=== PATIENT | male | born 1975 | race Caucasian/White ===

== ENCOUNTER 2021-04-21 08:22 | Emergency (ER) | payer BC ==
--- OUTSIDE RECORDS SUMMARY | 2021-04-21 08:25 | XMS REPORT | Continuity of Care Document ---
:1975 Author Organization [facility] t Address [address] [place] [place] [address] Care Team Providers Name Role Phone Lab, Hung Pob I Attending Clinician Unavailable Problems This patient has no known problems. Allergies, Adverse Reactions, Alerts This patient has no known allergies or adverse reactions. Medications This patient has no known medications. Procedures This patient has no known procedures. Encounters Start End Encounter Admission Attending Care Care Encounter Source Date/Time Date/Time Type Type Clinicians Facility Department ID 2020-03-07 2020-03-07 Laboratory Lab, [facility] [id number] 14:53:00 15:13:00 Only Fam Pob I [facility] [id number] [place] [id number] Jaswinder [phone] [address] Results This patient has no known results.
--- NOTE | 2021-04-21 08:58 | RAD REPORT ---
EXAM DESCRIPTION: CT - Stone Protocol - 04/21/2021 8:45 am CLINICAL HISTORY: Abdominal pain. ABD PAIN COMPARISON: Hepatobiliary System W/ Ph dated 11/04/2020; Abdomen Exam Limited dated 06/16/2020 TECHNIQUE: CT imaging of the abdomen and pelvis was performed without contrast. Solid organ, bowel a nd vascular assessment is limited due to lack of IV and oral contrast. All CT scans are performed using dose optimization technique as appropriate and may include automated exposure control or mA/KV adjustment according to patient size. FINDINGS: Patchy nodular and ground-glass opacities in the lower lungs. Small hiatal hernia. No suspicious liver lesions are identified. The spleen is enlarged measuring 16.5 centimeters in long axis. Bilateral nephrolithiasis. The renal calculi measure under 6 millimeters. . Mild left-sided hy dronephrosis secondary to a 5 millimeter stone in the left proximal ureter. The bladder is unremarkab le. No retroperitoneal lymphadenopathy. No bowel obstruction is identified. Normal appendix. The osseous structures are within normal limits. IMPRESSION: Mild left-sided hydronephrosis secondary to a 5 millimeters stone in the left proximal u reter. Irregular nodular ground-glass opacities in the lower lungs may reflect sequela of pneumonia, includi ng Covid-19. Recommend clinical correlation. If no recent pneumonia, suggest dedicated CT of the ches t for further evaluation. Splenomegaly of uncertain significance. A limited non-contrast examination was performed as detailed.
[2021-04-21 09:45] LABS: Absolute Lymphocytes (CBC) 1.1 K/uL (0.7-4.9); Basophils % 0.8 % (0-1.3); Hematocrit 38.4 % (39.6-49.0); Lymphocytes % 15.1 % (15.3-44.8); MPV 6.5 fL (7.6-11.3)
[2021-04-21 10:01] LABS: ALT/SGPT 47 U/L (12-78); AST/SGOT 22 U/L (15-37); Albumin 3.4 g/dL (3.4-5.0); Alkaline Phosphatase 165 U/L (45-117); BUN Blood Urea Nitrogen 13 mg/dL (7-18); Bicarbonate 24 mmol/L (21-32); Bilirubin Direct 0.3 mg/dL (0-0.2); Bilirubin Total 1.2 mg/dL (0.2-1.0); Glucose Level 188 mg/dL (74-106); Lipase 282 U/L (73-393); Potassium 3.3 mmol/L (3.5-5.1); Protein, Total 7.3 g/dL (6.4-8.2); Sodium Level 142 mmol/L (136-145)
[2021-04-21] MEDS ORDERED: HYDROMORPHONE HCL 1 MG/ML INJ ONE (10:31)
[2021-04-21] MEDS ORDERED: NA CHLORIDE 0.9% 1,000 ML ONE (10:31)
[2021-04-21] MEDS ORDERED: ONDANSETRON 4 MG/2 ML VIAL ONE (10:31)
[2021-04-21 10:33] LABS: Urine Blood 2+ (Negative); Urine Glucose Trace (Negative); Urine Protein Negative (Negative); Urine Specific Gravity 1.015 (1.005-1.030)
--- NOTE | 2021-04-21 10:41 | ER ---
Nurse's Notes [facility] Name: Michele Reilly Age: 46 yrs Sex: Male : 1975 Arrival Date: 04/21/2021 Time: 08: Bed 24 Private MD: Diagnosis: Calculus of ureter-left side Presentation: 04/21 08:26 Chief complaint: EMS states: back pain started last night, radiates to LUQ , EMS gave iw toradol and seemed to help, has been having abd issues that he's waiting on a diagnosis for, no fever, no vomiting. Coronavirus screen: Client presents with at least one sign or symptom that may indicate coronavirus-19. Ebola Screen: Patient negative for fever greater than or equal to 101.5 degrees Fahrenheit, and additional compatible Ebola Virus Disease symptoms Patient denies exposure to infectious person. Patient denies travel to an Ebola-affected area in the 21 days before illness onset. No symptoms or risks identified at this time. Initial Sepsis Screen: Does the patient meet any 2 criteria? No. Patient's initial sepsis screen is negative. Does the patient have a suspected source of infection? No. Patient's initial sepsis screen is negative. Risk Assessment: Do you want to hurt yourself or someone else? Patient reports no desire to harm self or others. Onset of symptoms was April 20, 2021. 08:26 Method Of Arrival: EMS: [facility] iw 08:26 Acuity: HENRY 3 iw Historical: - Allergies: 08:28 Augmentin; iw 08:28 Iodine; iw - Home Meds: 08:28 Gemfibrozil Oral [Active]; victoza [Active]; Paxil Oral [Active]; iw - PMHx: 08:28 Bronchitis; Diabetes mellitus; iw - Immunization history:: Client reports having NOT received the Covid vaccine. - Social history:: Smoking status: Patient denies any tobacco usage or history of. - Family history:: not pertinent. Screenin:21 Abuse screen: Denies threats or abuse. Nutritional screening: No deficits noted. vg1 Tuberculosis screening: No symptoms or risk factors identified. Fall Risk No fall in past 12 months (0 pts). No secondary diagnosis (0 pts). IV access (20 points). Ambulatory Aid- None/Bed Rest/Nurse Assist (0 pts). Gait- Normal/Bed Rest/Wheelchair (0 pts) Mental Status- Oriented to own ability (0 pts). Total Quintana Fall Scale indicates No Risk (0-24 pts). Assessment: 10:04 General: Appears in no apparent distress. uncomfortable, Behavior is calm, cooperative. vg1 Pain: Complains of pain in posterior aspect of left lateral abdomen and left upper quadrant Pain radiates to left low back and left mid back Pain currently is 8 out of 10 on a pain scale. Quality of pain is described as sharp, shooting, Pain began 1 day ago. Aggravated by repositioning. Neuro: Level of Consciousness is awake, alert, obeys commands, Oriented to person, place, time, situation. Cardiovascular: Patient's skin is warm and dry. Respiratory: Airway is patent Respiratory effort is even, unlabored. GI: Reports nausea, Patient currently denies diarrhea, vomiting. : Reports dark colored urine Denies burning with urination, urinary frequency. EENT: No signs and/or symptoms were reported regarding the EENT system. Derm: Skin is intact, is healthy with good turgor. Musculoskeletal: Circulation, motion, and sensation intact. Vital Signs: 08:36 BP 98 / 61; Pulse 82; Resp 16; Temp 98.0; Pulse Ox 97% on R/A; Weight 83.91 kg; Height iw 5 ft. 11 in. (180.34 cm); Pain 4/10; 09:24 BP 97 / 61; Pulse 70; iw 10:15 BP 106 / 62; Pulse 84; Resp 16; Pulse Ox 100% ; vg1 08:36 Body Mass Index 25.80 (83.91 kg, 180.34 cm) iw ED Course: 08:26 Patient arrived in ED. iw 08:27 Hussein Hansen MD is Attending Physician. ma2 08:27 Triage completed. iw 08:29 Arm band placed on. iw 08:30 Maintain EMS IV. Dressing intact. Good blood return noted. Site clean \T\ dry. Gauge \T\ iw site: 20 left hand . 08:44 CT Stone Protocol In Process Unspecified. EDMS 09:30 Renée Bowden, RN is Primary Nurse. iw 09:59 Chyna Ramos, RN is Primary Nurse. vg1 10:22 Patient has correct armband on for positive identification. Bed in low position. Call vg1 light in reach. Side rails up X 1. 10:22 No provider procedures requiring assistance completed. vg1 10:40 Vinnie Griffin MD is Referral Physician. ma2 11:41 IV discontinued, intact, bleeding controlled, No redness/swelling at site. Pressure vg1 dressing applied. Administered Medications: 10:14 Drug: NS 0.9% 1000 ml Route: IV; Rate: 1000 ml; Site: left hand; vg1 11:40 Follow up: IV Status: Completed infusion; IV Intake: 1000ml vg1 10:15 Drug: Zofran (Ondansetron) 4 mg Route: IVP; Site: left hand; vg1 11:41 Follow up: Response: No adverse reaction; Marked relief of symptoms vg1 10:17 Drug: Dilaudid (HYDROmorphone) 1 mg Route: IVP; Site: left hand; vg1 11:40 Follow up: Response: No adverse reaction; Pain is decreased vg1 Intake: 11:40 IV: 1000ml; Total: 1000ml. vg1 Outcome: 10:40 Discharge ordered by . ma2 11:41 Discharged to home ambulatory. vg1 11:41 Condition: stable 11:41 Discharge instructions given to patient, Instructed on discharge instructions, follow up and referral plans. medication usage, Demonstrated understanding of instructions, follow-up care, medications, Prescriptions given X 3. 11:41 Patient left the ED. vg1 Signatures: Dispatcher [employer] Renée López, RN JAMA iw Hussein Hansen MD MD ma2 Garcia, Victoria, RN RN vg1
--- NOTE | 2021-04-21 10:41 | EDPHYS ---
Physician Documentation [facility] Name: Michele Reilly Age: 46 yrs Sex: Male : 1975 Arrival Date: 04/21/2021 Time: 08: Bed 24 Private MD: ED Physician Hussein Hansen HPI: 04/21 09:27 This 46 yrs old Male presents to ER via EMS with complaints of Back Pain. ma2 09:27 This 46 yrs old Male presents to ER via EMS with complaints of left flank ma2 pain Pain. 09:27 The symptoms are located in the Left flank. Onset: The symptoms/episode began/occurred ma2 gradually, 1 day(s) ago. The pain does not radiate. Associated signs and symptoms: Pertinent negatives: constipation, headache, numbness, tingling. Severity of symptoms: At their worst the symptoms were moderate, in the emergency department the symptoms are unchanged. The patient has not experienced similar symptoms in the past. Historical: - Allergies: 08:28 Augmentin; iw 08:28 Iodine; iw - Home Meds: 08:28 Gemfibrozil Oral [Active]; victoza [Active]; Paxil Oral [Active]; iw - PMHx: 08:28 Bronchitis; Diabetes mellitus; iw - Immunization history:: Client reports having NOT received the Covid vaccine. - Social history:: Smoking status: Patient denies any tobacco usage or history of. - Family history:: not pertinent. ROS: 09:27 Constitutional: Negative for fever, chills, and weight loss. ma2 09:27 All other systems are negative. Exam: 09:27 Constitutional: This is a well developed, well nourished patient who is awake, alert, ma2 and in no acute distress. ENT: Nares patent. No nasal discharge, no septal abnormalities noted. Tympanic membranes are normal and external auditory canals are clear. Oropharynx with no redness, swelling, or masses, exudates, or evidence of obstruction, uvula midline. Mucous membranes moist. Neck: Trachea midline, no thyromegaly or masses palpated, and no cervical lymphadenopathy. Supple, full range of motion without nuchal rigidity, or vertebral point tenderness. No Meningismus. Chest/axilla: Normal chest wall appearance and motion. Nontender with no deformity. No lesions are appreciated. Cardiovascular: Regular rate and rhythm with a normal S1 and S2. No gallops, murmurs, or rubs. Normal PMI, no JVD. No pulse deficits. Respiratory: Lungs have equal breath sounds bilaterally, clear to auscultation and percussion. No rales, rhonchi or wheezes noted. No increased work of breathing, no retractions or nasal flaring. Abdomen/GI: Soft, non-tender, with normal bowel sounds. No distension or tympany. No guarding or rebound. No evidence of tenderness throughout. Back: No spinal tenderness. No costovertebral tenderness. Full range of motion. Skin: Warm, dry with normal turgor. Normal color with no rashes, no lesions, and no evidence of cellulitis. MS/ Extremity: Pulses equal, no cyanosis. Neurovascular intact. Full, normal range of motion. Neuro: Awake and alert, GCS 15, oriented to person, place, time, and situation. Cranial nerves II-XII grossly intact. Motor strength 5/5 in all extremities. Sensory grossly intact. Cerebellar exam normal. Normal gait. Vital Signs: 08:36 BP 98 / 61; Pulse 82; Resp 16; Temp 98.0; Pulse Ox 97% on R/A; Weight 83.91 kg; Height iw 5 ft. 11 in. (180.34 cm); Pain 4/10; 09:24 BP 97 / 61; Pulse 70; iw 10:15 BP 106 / 62; Pulse 84; Resp 16; Pulse Ox 100% ; vg1 08:36 Body Mass Index 25.80 (83.91 kg, 180.34 cm) iw MDM: 08:27 Patient medically screened. or2 09:27 Differential diagnosis: Fracture Hydronephrosis sprain, vertebral fracture. Data ma2 reviewed: vital signs, nurses notes. Counseling: I had a detailed discussion with the patient and/or guardian regarding: the historical points, exam findings, and any diagnostic results supporting the discharge/admit diagnosis, the presence of at least one elevated blood pressure reading (>120/80) during this emergency department visit, the need for outpatient follow up. Response to treatment: the patient's symptoms have markedly improved after treatment. 04/21 08:28 Order name: Basic Metabolic Panel; Complete Time: 10:39 ma2 04/21 08:28 Order name: CBC with Diff; Complete Time: 10:39 ma2 04/21 08:28 Order name: Hepatic Function; Complete Time: 10:39 ma2 04/21 08:28 Order name: Lipase; Complete Time: 10:39 or2 04/21 10:32 Order name: Urine Dipstick-Ancillary; Complete Time: 10:39 EDMS 04/21 08:28 Order name: CT Stone Protocol; Complete Time: 09:11 or2 04/21 08:28 Order name: IV Saline Lock; Complete Time: 09:24 ma2 04/21 08:28 Order name: NPO; Complete Time: 10:02 ma2 04/21 08:28 Order name: Urine Dipstick-Ancillary (obtain specimen); Complete Time: 10:33 ma2 Administered Medications: 10:14 Drug: NS 0.9% 1000 ml Route: IV; Rate: 1000 ml; Site: left hand; vg1 11:40 Follow up: IV Status: Completed infusion; IV Intake: 1000ml vg1 10:15 Drug: Zofran (Ondansetron) 4 mg Route: IVP; Site: left hand; vg1 11:41 Follow up: Response: No adverse reaction; Marked relief of symptoms vg1 10:17 Drug: Dilaudid (HYDROmorphone) 1 mg Route: IVP; Site: left hand; vg1 11:40 Follow up: Response: No adverse reaction; Pain is decreased vg1 Disposition Summary: 04/21/21 10:40 Discharge Ordered Location: Home ma2 Condition: Stable ma2 Diagnosis - Calculus of ureter - left side ma2 Followup: ma2 - With: - When: Tomorrow - Reason: If symptoms return Discharge Instructions: - Discharge Summary Sheet ma2 - Renal Colic, [id number] ma2 - Kidney Stones, [id number] ma2 - Dietary Guidelines to Help Prevent Kidney Stones ma2 Forms: - Medication Reconciliation Form ma2 - Thank You Letter ma2 - Antibiotic Education ma2 - Prescription Opioid Use ma2 Prescriptions: - Flomax 0.4 mg Oral capsule - take 1 capsule by ORAL route once daily 1/2 hour following the same meal each ma2 day; 60 capsule; Refills: 0, Product Selection Permitted - Zofran 4 mg Oral Tablet - take 1 tablet by ORAL route every 12 hours As needed; 20 tablet; Refills: 0, ma2 Product Selection Permitted - Diclofenac Sodium 75 mg Oral Tablet Sustained Release - take 1 tablet by ORAL route 2 times per day; 30 tablet; Refills: 0, Product ma2 Selection Permitted Signatures: Dispatcher [employer] Renée López, RN RN iw Hussein Hansen MD MD ma2 Chyna Ramos RN RN vg1
[2021-04-21 11:48] VITALS: TEMP 98
[2021-04-21 11:50] VITALS: BP 106/62; O2SAT 100
== END 2021-04-21 11:41 | disposition home or self-care (01) ==
LOC: ER 08:22
DX: N20.1 Calculus of ureter (principal); E11.9 Type 2 diabetes mellitus without complications; Z88.1 Allergy status to other antibiotic agents; Z91.048 Other nonmedicinal substance allergy status
CPT/HCPCS: 96361; 85025; 80048; 36415; 80076; 81003; 83690; 76377; 74176; 96375; 96374; 99284; J1170; J7030; J2405

== ENCOUNTER 2023-01-14 10:14 | Emergency (ER) | payer BC ==
--- OUTSIDE RECORDS SUMMARY | 2023-01-14 10:18 | XMS REPORT | Continuity of Care Document ---
:1975 Author Organization [facility] t Address [address] [facility] [address] [place] [address] Care Team Providers Name Role Phone Lab, [facility] Fam Pob I Attending Clinician Unavailable Herminio Beatty Attending Clinician HERMINIO FROST Attending Clinician Unavailable Payers Payer Name Policy Type Policy Number Effective Date Expiration Date S ource Problems This patient has no known problems. Allergies, Adverse Reactions, Alerts Allergy Allergy Status Severity Reaction(s) Onset Inactive Treating Comm ents Source Name Type Date Date Clinician NO KNOWN Drug Active [facility] Class ity of [facility] Social History Social Habit Start Date Stop Date Quantity Comments Source Sex Assigned At Uni versity [facility] Smoking Status Start Date Stop Date Source Unknown if ever smoked [facility] Medications This patient has no known medications. Procedures This patient has no known procedures. Encounters Start End Encounter Admission Attending Care Care Encounter Source Date/Time Date/Time Type Type Clinicians Facility Department ID 2020-03-07 2020-03-07 Laboratory Lab, [facility] [id number] 14:53:00 15:13:00 Only Fam Pob I Health [id number] [place] [id number] [facility] [id number] [address] 2020-03-07 2020-03-07 Laboratory Lab, [facility] Fam Pob I [facility] [id number] [facility] 14:53:00 15:13:00 Only Herminio [facility] [id number] [facility] [place] [id number] Nick as Professio [phone] [place] [address] [address] 2020-03-07 2020-03-07 Outpatient R [facility] [id number] [address] [facility] 14:40:00 14:40:00 HERMINIO pimentel [facility] Results This patient has no known results.
--- NOTE | 2023-01-14 11:17 | RAD REPORT ---
EXAM DESCRIPTION: LEONARDOChest Single View01/14/2023 11:06 am CLINICAL HISTORY: SOB COMPARISON: Chest Pa And Lat (2 Views) dated 08/29/2022; Abdomen 1 View (KUB) dated 05/22/2021 TECHNIQUE: Portable AP view of the chest. FINDINGS: Decreased inspiratory effort somewhat limits evaluation. The lungs are clear. No pneumotho rax or effusion. The cardiomediastinal contours are unremarkable. IMPRESSION: No acute cardiopulmonary process.
[2023-01-14 11:18] LABS: ALT/SGPT 45 U/L (16-61); AST/SGOT 25 U/L (15-37); Albumin 4.1 g/dL (3.4-5.0); Alkaline Phosphatase 93 U/L (45-117); BUN Blood Urea Nitrogen 16 mg/dL (7-18); Bicarbonate 23 mEq/L (21-32); Bilirubin Direct 0.4 mg/dL (0-0.2); Bilirubin Indirect, Calculated 2.1 mg/dL (0.2-0.8); Bilirubin Total 2.5 mg/dL (0.2-1.0); Glomerular Filtration Rate 107 ml/min (=/>90); Glucose Level 194 mg/dL (74-106); Magnesium 1.8 mg/dL (1.6-2.4); NT PRO-BNP 19 pg/mL (<125); Potassium 3.7 mEq/L (3.5-5.1); Protein, Total 7.9 g/dL (6.4-8.2); Sodium Level 136 mEq/L (136-145)
[2023-01-14 11:19] LABS: Absolute Lymphocytes (CBC) 0.9 K/uL (0.7-4.9); Hematocrit 49.3 % (39.6-49.0); Lymphocytes % 7.4 % (15.3-44.8); MCV 88.7 fL (80-100); MPV 7.4 fL (7.6-11.3); RBC Red Blood Cell Count 5.56 M/uL (4.33-5.43)
[2023-01-14 11:28] LABS: Troponin High Sensitivity < 3.0 pg/mL (<58.9)
[2023-01-14 11:28] LABS: SARS-CoV-2 Antigen Rapid Res Negative (Negative)
[2023-01-14 11:39] LABS: Protime INR 0.85
--- NOTE | 2023-01-14 12:07 | RAD REPORT ---
EXAM DESCRIPTION: CT - Chest For Pe Angio - 01/14/2023 11:41 am CLINICAL HISTORY: SOB COMPARISON: Chest Single View dated 01/14/2023 TECHNIQUE: Thin axial CT images of the chest were obtained following administration of 100 mL Isovu e 370 IV contrast. Multiplanar reconstructions, and maximum intensity projection reconstructions were generated and reviewed. Exam utilizes a protocol for optimal evaluation of pulmonary arterial tree. All CT scans are performed using dose optimization technique as appropriate and may include automated exposure control or mA/KV adjustment according to patient size. FINDINGS: Pulmonary arteries are normal. No emboli or other suspicious finding. No acute or signific ant aorta findings. No mass or infiltrate in the lung parenchyma. Right basilar subsegmental atelectasis. No pleural thic kening or pleural effusion. No pneumothorax. Prominent mediastinal and hilar lymph nodes. The largest mediastinal node is pretracheal, measuring 2 centimeter in short axis. Hilar lymph nodes are slightly more prominent on the right, with the large st node superiorly measuring 1.8 centimeter in short axis. No chest wall mass or abnormal axilliary l ymphadenopathy. IMPRESSION: No evidence of acute central pulmonary emboli. Moderately pronounced mediastinal and bilateral hilar adenopathy. These could be reactive or inflamma tory, although possibility of neoplasm such as lymphoma cannot be entirely excluded.
[2023-01-14] MEDS ORDERED: HYDROMORPHONE HCL 1 MG/ML INJ ONE (12:55)
[2023-01-14] MEDS ORDERED: ONDANSETRON 4 MG/2 ML VIAL ONE (12:55)
--- NOTE | 2023-01-14 13:22 | RAD REPORT ---
EXAM DESCRIPTION: CTAbdomen Pelvis W Contrast - 01/14/2023 1:12 pm CLINICAL HISTORY: Abdominal pain. elevated Tbili and abn CT chest COMPARISON: Chest For Pe Angio dated 01/14/2023 TECHNIQUE: Biphasic CT imaging of the abdomen and pelvis was performed with 100 ml non-ionic IV cont rast. All CT scans are performed using dose optimization technique as appropriate and may include automated exposure control or mA/KV adjustment according to patient size. FINDINGS: Mild linear atelectasis in both lung bases. The liver is mildly enlarged. Mild fatty liver. No intra or extrahepatic biliary tree dilatation. Mod erate splenomegaly. The spleen, adrenal glands and kidneys are within normal limits. No bowel obstruction, free air, free fluid or abscess. The appendix is normal. No evidence of signi ficant lymphadenopathy. No suspicious bony findings. IMPRESSION: Mild hepatosplenomegaly is noted, otherwise negative study.
[2023-01-14] MEDS ORDERED: NA CHLORIDE 0.9% 1,000 ML ONE ×2 (13:37→14:34)
--- NOTE | 2023-01-14 14:27 | EDPHYS ---
Physician Documentation [facility] Name: Michele Reilly Age: 47 yrs Sex: Male : 1975 Arrival Date: 01/14/2023 Time: 10:14 Bed 6 Private MD: Tien Moreno E ED Physician Darek Nguyen HPI: 01/14 10:49 This 47 yrs old Male presents to ER via Unassigned with complaints of Shortness Of sp3 Breath. 10:49 This 47 yrs old Male presents to ER via Unassigned with complaints of Shortness Of sp3 Breath. 10:49 47-year-old male with a history of diabetes presents to the ED with chief complaint sp3 shortness of breath. From his PCP. He went to his doctor and was found to be tachycardic along with a pulse oxygenation level of 91 to 92% as reported by patient. She denies chest pain, back pain, headache, neck pain, travel history, prolonged immobilization, prior DVT or pulmonary embolism, prior pneumonia, fever, abdominal pain, nausea, vomiting, diarrhea, rash, neurological symptoms, any other signs or symptoms on ROS at this time. Patient does endorse mild cough and congestion.. Historical: - Allergies: 10:55 Augmentin; jl7 10:55 Iodine; topical; jl7 - Home Meds: 10:55 Lantus Sub-Q [Active]; jl7 - PMHx: 10:55 Bronchitis; diabetes mellitus; jl7 - Immunization history:: Client reports having NOT received the Covid vaccine. - Social history:: Smoking status: Patient denies any tobacco usage or history of. ROS: 10:51 Constitutional: Negative for fever, chills, and weight loss, Eyes: Negative for injury, sp3 pain, redness, and discharge, ENT: Negative for injury, pain, and discharge, Neck: Negative for injury, pain, and swelling, Abdomen/GI: Negative for abdominal pain, nausea, vomiting, diarrhea, and constipation, Back: Negative for injury and pain, MS/Extremity: Negative for injury and deformity, Skin: Negative for injury, rash, and discoloration, Neuro: Negative for headache, weakness, numbness, tingling, and seizure, Psych: Negative for depression, anxiety, suicide ideation, homicidal ideation, and hallucinations, Allergy/Immunology: Negative for hives, rash, and allergies, Endocrine: Negative for neck swelling, polydipsia, polyuria, polyphagia, and marked weight changes, Hematologic/Lymphatic: Negative for swollen nodes, abnormal bleeding, and unusual bruising. 10:51 Back: Negative for injury and pain. 10:51 Cardiovascular: Positive for Exam: 10:52 Constitutional: This is a well developed, well nourished patient who is awake, alert, sp3 and in no acute distress. Head/Face: Normocephalic, atraumatic. Eyes: Pupils equal round and reactive to light, extra-ocular motions intact. Lids and lashes normal. Conjunctiva and sclera are non-icteric and not injected. Cornea within normal limits. Periorbital areas with no swelling, redness, or edema. ENT: Nares patent. No nasal discharge, no septal abnormalities noted. External auditory canals are clear. Oropharynx with no redness, swelling, or masses, exudates, or evidence of obstruction, uvula midline. Mucous membranes moist. Neck: Trachea midline, no thyromegaly or masses palpated, and no cervical lymphadenopathy. Supple, full range of motion without nuchal rigidity, or vertebral point tenderness. No Meningismus. Chest/axilla: Normal chest wall appearance and motion. Nontender with no deformity. No lesions are appreciated. Back: No spinal tenderness. No costovertebral tenderness. Full range of motion. Skin: Warm, dry with normal turgor. Normal color with no rashes, no lesions, and no evidence of cellulitis. 10:52 Cardiovascular: Rate: tachycardic. 10:52 Respiratory: Coarse sounds bilaterally.. 10:52 ECG was reviewed by the Attending Physician. EKG demonstrates sinus tachycardia at 118 sp3 bpm with normal intervals, normal QRS, normal axis, nonspecific diffuse ST/T changes without evidence of ischemia. Vital Signs: 10:20 BP 151 / 83; Pulse 128; Resp 24; Temp 98.4; Pulse Ox 98% ; Weight 94.35 kg; Height 5 jl7 ft. 10 in. ; Pain 10/10; 12:10 BP 105 / 63; Pulse 103; Resp 20; Pulse Ox 95% on R/A; jl7 12:55 BP 117 / 71; Pulse 115; Resp 17; Pulse Ox 92% ; jl7 14:04 BP 124 / 84; Pulse 104; Resp 20; Pulse Ox 95% 2 lpm ; jl7 16:00 BP 124 / 81; Pulse 97; Resp 15; Pulse Ox 95% on R/A; jl7 10:20 Body Mass Index 29.84 (94.35 kg, 177.8 cm) jl7 10:20 Pain Scale: Adult jl7 MDM: 10:24 Patient medically screened. sp3 10:53 Data reviewed: vital signs, nurses notes, lab test result(s), EKG, radiologic studies. sp3 ED course: 47-year-old male with shortness of breath. Consider infectious etiology including pneumonia bronchitis, strep throat, acute coronary syndrome, pulmonary embolism, among others. Will obtain EKG, laboratory values, CT scan of the chest with IV contrast on the PE protocol. Disposition to be based on data and patient course.. 14:25 ED course: CT scan of the abdomen and pelvis demonstrated no acute abnormality. Swabs sp3 are all negative. Heart rate has come down with IV fluids and lactate is 1.0. I performed extensive counseling with patient and have gone over all lab tests and radiological studies. I have advised him that his best course of action is to be admitted to the hospital for IV antibiotics and continued observation and work-up. However he wants to go home and states he will follow-up with his physician for outpatient management. We will give him 1 dose of IV cefepime prior to discharge. He is allergic to penicillin therefore fourth-generation cephalosporin should be okay. Blood cultures are pending. We will also give additional 1 L of normal saline to continue to bring heart rate down and hydrate patient. She understands that he can return at any time if he changes mind about being admitted or worsens in any way. He has pulse oximetry at home by [id number] device and his family will be around him at all times.. 01/14 10:25 Order name: Basic Metabolic Panel; Complete Time: 11: 3 01/14 10:25 Order name: CBC with Diff; Complete Time: 3 01/14 10:25 Order name: LFT's; Complete Time: : 3 01/14 10:25 Order name: Magnesium; Complete Time: 11: 3 01/14 10:25 Order name: NT PRO-BNP; Complete Time: : 3 01/14 10:25 Order name: PT-INR; Complete Time: 11:53 01/14 10:25 Order name: Troponin HS; Complete Time: 11:53 01/14 10:54 Order name: Strep 01/14 10:54 Order name: Flu; Complete Time: 11:53 01/14 10:54 Order name: SARS RAPID; Complete Time: 11:53 01/14 11:32 Order name: Throat Culture EDMS 01/14 13:27 Order name: Lactate w/ 2H reflex if indic.; Complete Time: 14:19 3 01/14 13:27 Order name: Blood Culture Adult (2) 3 01/14 10:25 Order name: XRAY Chest (1 view); Complete Time: 11:53 01/14 10:25 Order name: CT Chest For PE Angio; Complete Time: 12:45 01/14 12:44 Order name: CT Abd/Pelvis - IV Contrast Only; Complete Time: 14:19 01/14 10:25 Order name: EKG; Complete Time: 10:28 01/14 10:25 Order name: Cardiac monitoring; Complete Time: 10:48 01/14 10:25 Order name: EKG - Nurse/Tech; Complete Time: 10:48 01/14 10:25 Order name: IV Saline Lock; Complete Time: 10:48 01/14 10:25 Order name: Labs collected and sent; Complete Time: 10:48 01/14 10:25 Order name: O2 Sat Monitoring; Complete Time: 10:49 01/14 14:24 Order name: Misc. Order: DC Oxygen; Complete Time: 14:34 3 Administered Medications: 12:57 Drug: HYDROmorphone IVP 1 mg Route: IVP; Site: right forearm; jl7 13:10 Follow up: Response: No adverse reaction; Pain is decreased jl7 12:57 Drug: Ondansetron IVP 4 mg Route: IVP; Site: right forearm; jl7 14:04 Follow up: Response: No adverse reaction jl7 13:35 Drug: NS 0.9% IV 1000 ml Route: IV; Rate: 1 bolus; Site: right forearm; jl7 15:15 Follow up: Response: No adverse reaction; IV Status: Completed infusion; IV Intake: jl7 1000ml 14:33 Drug: Cefepime IVPB 2 grams Route: IVPB; Rate: 200 ml/hr; Infused Over: 30 mins; Site: jl7 right forearm; 15:04 Follow up: Response: No adverse reaction; IV Status: Completed infusion mb9 15:14 Drug: NS 0.9% IV 1000 ml Route: IV; Rate: bolus; Site: right forearm; jl7 16:32 Follow up: Response: No adverse reaction; IV Status: Completed infusion; IV Intake: jl7 1000ml Disposition Summary: 01/14/23 14:27 Discharge Ordered Location: Home sp3 Condition: Stable sp3 Diagnosis - Hilar lymphadenopathy, pulmonary infection of unknown etiology sp3 Followup: sp3 - With: Private Physician - When: Upon discharge from the Emergency Department - Reason: Recheck today's complaints, Continuance of care Discharge Instructions: - Discharge Summary Sheet sp3 - Acute Bronchitis, Adult sp3 - Pneumonitis sp3 Forms: - Medication Reconciliation Form sp3 - Thank You Letter sp3 - Antibiotic Education sp3 - Prescription Opioid Use sp3 Prescriptions: - levofloxacin 500 mg Oral Tablet - take 1 tablet by ORAL route once daily for 7 days; 7 tablet; Refills: 0, sp3 Product Selection Permitted Signatures: Dispatcher [employer] Haim Lamar RN RN jl7 Darek Nguyen MD MD sp3 Luba Kang RN mb9
--- NOTE | 2023-01-14 14:27 | ER ---
Nurse's Notes [facility] Name: Michele Reilly Age: 47 yrs Sex: Male : 1975 Arrival Date: 01/14/2023 Time: 10:14 Bed 6 Private MD: Tien Moreno E Diagnosis: Hilar lymphadenopathy, pulmonary infection of unknown etiology Presentation: 01/14 10:20 Chief complaint: Patient states: Sent by PCP for shortness of breath and tachycardia, jl7 SPO2 92% at PCP, denies fever, reports cough since yesterday with CUELLO and sore throat. 10:20 Coronavirus screen: Vaccine status: Patient reports being unvaccinated. cough unrelated jl7 to allergies, difficulty breathing, Client presents with at least one sign or symptom that may indicate coronavirus-19. Ebola Screen: No symptoms or risks identified at this time. Initial Sepsis Screen: Does the patient meet any 2 criteria? No. Patient's initial sepsis screen is negative. Does the patient have a suspected source of infection? No. Patient's initial sepsis screen is negative. Risk Assessment: Do you want to hurt yourself or someone else? Patient reports no desire to harm self or others. Onset of symptoms was January 13, 2023. 10:20 Method Of Arrival: Ambulatory jl7 10:20 Acuity: HENRY 3 jl7 Triage Assessment: 10:20 General: Appears distressed, uncomfortable, Behavior is cooperative, anxious, restless. jl7 Pain: Denies pain. EENT: Throat is clear Reports sore throat. Neuro: Level of Consciousness is awake, alert, obeys commands, Oriented to person, place, time, situation. Cardiovascular: Patient's skin is warm and dry. Rhythm is sinus tachycardia. Respiratory: Reports shortness of breath at rest since yesterday Onset: The symptoms/episode began/occurred yesterday, the patient has moderate shortness of breath. Derm: Skin is pink, warm \T\ dry. Historical: - Allergies: 10:55 Augmentin; jl7 10:55 Iodine; topical; jl7 - Home Meds: 10:55 Lantus Sub-Q [Active]; jl7 - PMHx: 10:55 Bronchitis; diabetes mellitus; jl7 - Immunization history:: Client reports having NOT received the Covid vaccine. - Social history:: Smoking status: Patient denies any tobacco usage or history of. Screenin:57 [facility] ED Fall Risk Assessment (Adult) History of falling in the last 3 months, jl7 including since admission No falls in past 3 months (0 pts) Confusion or Disorientation No (0 pts) Intoxicated or Sedated No (0 pts) Impaired Gait No (0 pts) Mobility Assist Device Used No (0 pt) Altered Elimination No (0 pt) Score/Fall Risk Level 0 - 2 = Low Risk Oriented to surroundings, Maintained a safe environment. Abuse screen: Denies threats or abuse. Denies injuries from another. Nutritional screening: No deficits noted. Tuberculosis screening: No symptoms or risk factors identified. Assessment: 12:11 Reassessment: Patient appears in no apparent distress at this time. pt laying in bed jl7 with eyes closed, respirations even and unlabored, no signs of distress noted at this time. remains at bedside. 12:55 Reassessment: Dr. Nguyen at bedside discussing results and POC, VO for 1mg Dilaudid and jl7 4 mg Zofran for continued CUELLO. pt medicated as ordered. 13:15 Reassessment: Pt O2 noted to decreased after medication administration, pt placed on 2 jl7 lpm via NC, O2 up to 95%. 14:04 Reassessment: Pt laying in bed with eyes closed, respirations even and unlabored, no jl7 signs of distress noted at this time. 14:34 Reassessment: Pt will be discharged once fluids and medication are done infusing. jl7 15:17 Reassessment: SPO2 while sleeping decreases to 88%, SPO2 on waking is 91%, [facility] jl7 notified, pt requesting to be discharged and will return if symptoms worsen. Pt will be discharged after 1 liter NS bolus. Vital Signs: 10:20 BP 151 / 83; Pulse 128; Resp 24; Temp 98.4; Pulse Ox 98% ; Weight 94.35 kg; Height 5 jl7 ft. 10 in. ; Pain 10/10; 12:10 BP 105 / 63; Pulse 103; Resp 20; Pulse Ox 95% on R/A; jl7 12:55 BP 117 / 71; Pulse 115; Resp 17; Pulse Ox 92% ; jl7 14:04 BP 124 / 84; Pulse 104; Resp 20; Pulse Ox 95% 2 lpm ; jl7 16:00 BP 124 / 81; Pulse 97; Resp 15; Pulse Ox 95% on R/A; jl7 10:20 Body Mass Index 29.84 (94.35 kg, 177.8 cm) jl7 10:20 Pain Scale: Adult jl7 ED Course: 10:15 Patient arrived in ED. am2 10:16 Darek Nguyen MD is Attending Physician. sp3 10:16 Tien Moreno MD is Private Physician. am2 10:16 Haim Garrido RN is Primary Nurse. jl7 10:20 Arm band placed on right wrist. jl7 10:30 Missed attempt(s): 20 gauge in left antecubital area. Bleeding controlled, band aid jl7 applied, catheter tip intact. 10:36 Missed attempt(s): 20 gauge in left forearm. Bleeding controlled, band aid applied, jl7 catheter tip intact. 10:36 Initial lab(s) drawn, by me, sent to lab. EKG done, by ED staff, reviewed by Darek Nguyen MD. 10:45 Inserted saline lock: 22 gauge in right forearm, using aseptic technique. Blood jl7 collected. 10:49 Basic Metabolic Panel Sent. ko1 10:49 CBC with Diff Sent. ko1 10:49 LFT's Sent. ko1 10:49 Magnesium Sent. ko1 10:49 NT PRO-BNP Sent. ko1 10:49 PT-INR Sent. ko1 10:49 Troponin HS Sent. ko1 10:55 Triage completed. jl7 10:57 Patient has correct armband on for positive identification. Placed in gown. Bed in low jl7 position. Call light in reach. Side rails up X2. Client placed on continuous cardiac and pulse oximetry monitoring. NIBP monitoring applied. 10:59 COVID swab sent to lab. Flu and/or RSV swab sent to lab. Strep swab sent to lab. jl7 11:08 XRAY Chest (1 view) In Process Unspecified. EDMS 11:43 CT Chest For PE Angio In Process Unspecified. EDMS 13:14 CT Abd/Pelvis - IV Contrast Only In Process Unspecified. EDMS 16:32 No provider procedures requiring assistance completed. IV discontinued, intact, jl7 bleeding controlled, No redness/swelling at site. Pressure dressing applied. Administered Medications: 12:57 Drug: HYDROmorphone IVP 1 mg Route: IVP; Site: right forearm; jl7 13:10 Follow up: Response: No adverse reaction; Pain is decreased jl7 12:57 Drug: Ondansetron IVP 4 mg Route: IVP; Site: right forearm; jl7 14:04 Follow up: Response: No adverse reaction jl7 13:35 Drug: NS 0.9% IV 1000 ml Route: IV; Rate: 1 bolus; Site: right forearm; jl7 15:15 Follow up: Response: No adverse reaction; IV Status: Completed infusion; IV Intake: jl7 1000ml 14:33 Drug: Cefepime IVPB 2 grams Route: IVPB; Rate: 200 ml/hr; Infused Over: 30 mins; Site: jl7 right forearm; 15:04 Follow up: Response: No adverse reaction; IV Status: Completed infusion 9 15:14 Drug: NS 0.9% IV 1000 ml Route: IV; Rate: bolus; Site: right forearm; jl7 16:32 Follow up: Response: No adverse reaction; IV Status: Completed infusion; IV Intake: jl7 1000ml Medication: 10:57 VIS not applicable for this client. jl7 Intake: 15:15 IV: 1000ml; Total: 1000ml. jl7 16:32 IV: 1000ml; Total: 2000ml. jl7 Outcome: 14:27 Discharge ordered by . sp3 16:32 Discharged to home via wheelchair, with family. jl7 16:32 Condition: stable 16:32 Discharge instructions given to patient, family, Instructed on discharge instructions, follow up and referral plans. medication usage, Demonstrated understanding of instructions, follow-up care, medications, Prescriptions given X 1. 16:32 Patient left the ED. 7 Signatures: Dispatcher [employer] EDMS Haim Garrido RN RN jl7 Angely Miller Setul, MD MD sp3 Marcia Cutler RN RN ko1 Luba Kang RN RN mb9
[2023-01-14] MEDS ORDERED: CEFEPIME 2 GM VIAL ONE (14:34)
[2023-01-14] MEDS ORDERED: NA CHLORIDE 0.9% 100 ML ONE (14:34)
[2023-01-14 17:37] VITALS: TEMP 98.4
[2023-01-14 17:43] VITALS: O2SAT 95
[2023-01-14 17:44] VITALS: BP 124/81
--- NOTE | 2023-01-16 05:01 | EKG ---
Test Date: 2023-01-14 Test Time: 10:28:25 [place]: RELL MEASUREMENT RESULTS: Intervals: Rate: 118 ND: 164 QRSD: 98 QT: 320 QTc: 448 [place]: P: 70 ND: 164 QRS: -1 T: 48 INTERPRETIVE STATEMENTS: Sinus tachycardia Otherwise normal ECG Compared to ECG 08/25/2013 10:50:58 Sinus rhythm no longer present Electronically Signed On 01-16-23 04:55:02 CDT by Kg Tracy
== END 2023-01-14 16:32 | disposition home or self-care (01) ==
LOC: ER 10:14 → SUPCPDRO 10:14 → ER 16:32
DX: B99.9 Unspecified infectious disease (principal); R59.0 Localized enlarged lymph nodes; E11.9 Type 2 diabetes mellitus without complications; Z79.4 Long term (current) use of insulin; Z20.822 Contact with and (suspected) exposure to COVID-19; Z88.1 Allergy status to other antibiotic agents; Z91.048 Other nonmedicinal substance allergy status
CPT/HCPCS: 93005; 87040 ×2; 87070; 85025; 80048; 36415; 83735; 85610; 80076; 87081; 83605; 84484; 83880; 87804 ×2; 71275; 74177; 71045; 87811; Q9967 ×2; J0692; J1170; J2405; J7030 ×2